=== PATIENT | male | born 2000 | race Caucasian/White ===

== ENCOUNTER 2025-05-13 21:36 | Emergency (ER) | payer MEDICAID, OTHER ==
[~2025-05-13] VITALS: Ht 170.2 cm; Wt 54.1 kg
[2025-05-13 22:01] VITALS: BP 122/86; PULSE 103; RESP 16; O2SAT 99
--- NOTE | 2025-05-13 22:27 | Physician Documentation ---
History of Present Illness ~ Chief Complaint: Toe pain Stated Complaint: TOE PAIN Time Seen by MD: 22:21 HPI 24-year-old male presenting with toe pain. He tells me that a couple of weeks ago he stubbed his toe. He then developed pain and swelling around the nail. There has been some purulent drainage. No fevers. No other acute concerns Tetanus witin 5 years: No Medication Reconciliation Scheduled Sulfamethoxazole/Trimethoprim (Bactrim Ds Tablet), 1 TAB PO Q12H Review of Systems Constitutional: Denies: fever Musculoskeletal: Reports: pain Physical Exam Vital Signs: Temperature: 98.4, Source: Temporal, Heart Rate: 103, Respiratory Rate: 16, BP: 122/86, Pulse Oximetry: 99, Weight: 54.150 Oxygen Flow Rate: 0 Physical Exam General: This is a healthy-appearing young man, partner at bedside Heart: Regular rate and rhythm, normal-appearing peripheral perfusion Lungs: normal work of breathing, normal oxygen saturation on room air Extremities: Warm and well-perfused Right foot: The right great toe has swelling around the base of the nail, consistent with a paronychia. There is no purulent drainage at this time. Neuro: Alert and oriented Psychiatric: Calm and cooperative with exam Progress Results/Orders Results/Orders Orders - CARRI WELLINGTON MD, Complete (3vw Min) (05/13/25 22:06) Completed Orders - CARRI WELLINGTON MD, Complete (3vw Min) (05/13/25 22:06) Sulfamethox/Trimetho. Ds Tab (Mayra Ds (05/13/25 23:10) Medications Received in ER Medications (Trade) Dose Ordered Sig/Juana Route PRN Reason Start Time Stop Time Status Last Admin Dose Admin (Mayra DS tab) 1 tab ONCE ONCE PO 05/13/25 23:10 05/13/25 23:11 DC 05/13/25 23:21 1 TAB Vital Signs 05/13/25 05/13/25 22:01 23:18 Temp 98.4 98.4 Pulse 103 Resp 16 B/P (MAP) 122/86 Pulse Ox 99 O2 Flow Rate 0 Medical Decision Making Additional Comment The patient presents with findings consistent with a paronychia. I did recommend a digital block and drainage, as well as antibiotics. However the patient declined the incision and drainage. He will be discharged home with Bactrim, home care instructions including warm soaks and trying to drain the pus by himself. Strict return precautions given if it does worsen or does not improve. Departure Time of Disposition: 23:09 Disposition: 01 HOME / SELF CARE / HOMELESS Impression: Primary Impression: Paronychia Condition: Stable Discharge Instructions: Paronychia Referrals: NO PRIMARY CARE PROVIDER (PCP) Prescriptions Sulfamethoxazole/Trimethoprim (Bactrim Ds Tablet) 800 Mg-160 Mg Tablet 1 TAB PO Q12H for 7 Days, #14 TAB Prov: CARRI WELLINGTON MD 05/13/25 Education Educated: Patient, Family Educated regarding: diagnosis, treatment, need for follow up Signature Scribe Signature: na Attestation: CARRI Desir MD May 13, 2025 22:27
--- NOTE | 2025-05-13 22:41 | RADIOLOGY REPORT ---
CLINICAL INDICATION: R/O OSTEOMYELITIS, RIGHT GREAT TOE TECHNIQUE: 3 views DI FOOT, COMPLETE (3VW MIN) Comparison: None FINDINGS: No acute fracture or evidence of erosion, pathologic sclerosis or periostitis. No significant degene rative change. Partially assessed tibial intramedullary nail and medial malleolar screw fixation. Pr ior pin tract of the posterior calcaneus. Mild soft tissue prominence of the great toe. IMPRESSION: 1. No radiographic evidence of right foot osteomyelitis.
[2025-05-13] MEDS ORDERED: SULF1TAB49 PO (23:11)
[2025-05-13 23:18] VITALS: TEMP 98.4
[2025-05-13] MEDS: sulfamethoxazole/trimethoprim DS (800/160mg) tablet PO ONE (23:21)
== END 2025-05-13 23:24 | disposition home or self-care (01) ==
LOC: ER 21:37
DX: L03.031 Cellulitis of right toe (principal)
CPT/HCPCS: 73630; 99283; A6449